=== PATIENT | male | born 1955 | race Caucasian/White ===

== ENCOUNTER 2017-04-29 00:17 | Emergency (ER) | payer MEDICAID, OTHER ==
[~2017-04-29] VITALS: Ht 177.8 cm; Wt 76.5 kg
[2017-04-29 00:23] VITALS: Ht 177.8 cm; Wt 76.5 kg
[2017-04-29] MEDS ORDERED: SOD CHLORIDE 0.9% 500 ML IV STA (00:38)
[2017-04-29 01:20] LABS: BASOPHILS % 0.3 % (0.0-2.0); EOSINOPHILS % 0.6 % (0.0-7.0); HEMATOCRIT 44.8 % (42.0-52.0); HEMOGLOBIN 15.6 g/dl (14.0-18.0); LYMPHOCYTES # 1.6 10^3/ul (0.8-2.9); LYMPHOCYTES % 22.4 % (15.0-51.0); MEAN CORPUSCULAR HEMOGLOBIN 30.5 pg (29.0-33.0); MEAN CORPUSCULAR HGB CONC 34.8 g/dl (32.0-37.0); MEAN CORPUSCULAR VOLUME 87.5 fl (82.0-101.0); MEAN PLATELET VOLUME 11.5 fl (7.4-10.4); MONOCYTE # 0.5 10^3/ul (0.3-0.9); MONOCYTES % 7.3 % (0.0-11.0); NEUTROPHIL # 4.8 10^3/ul (1.6-7.5); NEUTROPHILS % 68.4 % (39.0-77.0); PLATELET COUNT 207 10^3/UL (140-415); RED BLOOD COUNT 5.12 10^6/ul (4.70-6.10); RED CELL DISTRIBUTION WIDTH 11.7 % (11.5-14.5)
[2017-04-29 01:47] LABS: ALANINE AMINOTRANSFERASE 41 IU/L (13-69); ALBUMIN 4.3 g/dl (3.3-4.9); ALBUMIN/GLOBULIN RATIO 1.43; ALKALINE PHOSPHATASE 86 IU/L (42-121); ANION GAP 13 (8-16); ASPARTATE AMINO TRANSFERASE 26 IU/L (15-46); BILIRUBIN,INDIRECT 0.4 mg/dl (0-1.1); BILIRUBIN,TOTAL 0.4 mg/dl (0.2-1.3); BLOOD UREA NITROGEN 15 mg/dl (7-20); CALCIUM 8.8 mg/dl (8.4-10.2); CARBON DIOXIDE 27 mmol/L (21-31); CHLORIDE 107 mmol/L (97-110); CREATININE 0.85 mg/dl (0.61-1.24); GLUCOSE 170 mg/dl (70-220); POTASSIUM 3.9 mmol/L (3.5-5.1); SODIUM 143 mmol/L (135-144); TOTAL PROTEIN 7.3 g/dl (6.1-8.1)
[2017-04-29 01:59] LABS: B-TYPE NATRIURETIC PEPTIDE 33 PG/ML (0-125)
--- NOTE | 2017-04-29 02:04 | RADRPT ---
PROCEDURE: XR Chest. CLINICAL INDICATION: Chest pain. TECHNIQUE: Single frontal view of the chest. COMPARISON: None. FINDINGS: The cardiomediastinal silhouette is within normal limits. Mild atelectasis at the left lung base. Th e lungs are otherwise clear. No signs of pleural fluid or pneumothorax are seen. The osseous structu res and soft tissues are unremarkable. IMPRESSION: No evidence for active cardiopulmonary disease. RPTAT: [facility] Physician Chicho Date Time Electronically viewed and signed by Physician Chicho on 04/29/2017 02:03 RS/
[2017-04-29 02:05] LABS: TROPONIN-I < 0.012 ng/ml (0.00-0.12)
[2017-04-29] MEDS ORDERED: MULTI PO (03:20)
[2017-04-29 03:55] VITALS: TEMP 99.1
[2017-04-29 03:59] VITALS: BP 133/72; PULSE 70; RESP 18
--- NOTE | 2017-04-29 04:45 | ERD ---
ER Documentation Chief Complaint Date/Time 62-year-old male here with complaints of feeling weak today. General weakness. Denies any fevers chills nausea vomiting. Denies any other current complaints. Denies any focal neurological complaints. No chest pain no nausea no vomiting no chills. He started feeling tightness around 5:00 in the afternoon today but felt earlier in the day as well. Chief Complaint weakness, dry mouth (denies any medical hx) ROS All systems reviewed and are negative except as per history of present illness. Medications Home Meds Reported Medications Multivitamins* (Theragran*) 1 Tab Tab, 1 TAB PO DAILY, TAB 04/29/17 Allergies Allergies: Coded Allergies: No Known Allergy (Unverified , 04/29/17) PMhx/Soc Medical and Surgical Hx: pt denies Surgical Hx Hx Respiratory Disorders: No Hx Cardiac Disorders: Yes (PT UNCERTAIN OF EXACTLY WHAT) Hx Alcohol Use: Yes Hx Substance Use: Yes Hx Tobacco Use: Yes Smoking Status: Current every day smoker Physical Exam Vitals Vital Signs Date Time Temp Pulse Resp B/P Pulse Ox O2 Delivery O2 Flow Rate FiO2 04/29/17 03:59 70 18 133/72 98 Room Air 04/29/17 03:55 99.1 69 20 135/68 98 Room Air 04/29/17 02:23 16 150/73 94 Room Air 04/29/17 01:12 68 17 142/72 97 04/29/17 00:55 97.8 66 19 131/72 98 Room Air 04/29/17 00:23 97.8 85 20 151/86 98 Physical Exam Const: [] Head: Atraumatic Eyes: Normal Conjunctiva ENT: Normal External Ears, Nose and Mouth. Neck: Full range of motion..~ No meningismus. Resp: Clear to auscultation bilaterally Cardio: Regular rate and rhythm, no murmurs Abd: Soft, non tender, non distended. Normal bowel sounds Skin: No petechiae or rashes Back: No midline or flank tenderness Ext: No cyanosis, or edema Neur: Awake and alert Psych: Normal Mood and Affect Result Diagram: 04/29/17 0053 04/29/17 0053 Results 24 hrs Laboratory Tests Test 04/29/17 00:53 White Blood Count 7.010^3/ul Red Blood Count 5.1210^6/ul Hemoglobin 15.6g/dl Hematocrit 44.8% Mean Corpuscular Volume 87.5fl Mean Corpuscular Hemoglobin 30.5pg Mean Corpuscular Hemoglobin Concent 34.8g/dl Red Cell Distribution Width 11.7% Platelet Count 32999^3/UL Mean Platelet Volume 11.5fl Neutrophils % 68.4% Lymphocytes % 22.4% Monocytes % 7.3% Eosinophils % 0.6% Basophils % 0.3% Nucleated Red Blood Cells % 0.0/100WBC Neutrophils # 4.810^3/ul Lymphocytes # 1.610^3/ul Monocytes # 0.510^3/ul Eosinophils # 0.010^3/ul Basophils # 0.010^3/ul Nucleated Red Blood Cells # 0.010^3/ul Sodium Level 143mmol/L Potassium Level 3.9mmol/L Chloride Level 107mmol/L Carbon Dioxide Level 27mmol/L Anion Gap 13 Blood Urea Nitrogen 15mg/dl Creatinine 0.85mg/dl Glucose Level 170mg/dl Calcium Level 8.8mg/dl Total Bilirubin 0.4mg/dl Direct Bilirubin 0.00mg/dl Indirect Bilirubin 0.4mg/dl Aspartate Amino Transf (AST/SGOT) 26IU/L Alanine Aminotransferase (ALT/SGPT) 41IU/L Alkaline Phosphatase 86IU/L Troponin I < 0.012ng/ml B-Type Natriuretic Peptide 33PG/ML Total Protein 7.3g/dl Albumin 4.3g/dl Globulin 3.00g/dl Albumin/Globulin Ratio 1.43 Current Medications Medications (Trade) Dose Ordered Sig/Giuseppe Route PRN Reason Start Time Stop Time Status Last Admin Dose Admin Sodium Chloride (NS) 500 ml @ 500 mls/hr Q1H STAT IV 04/29/17 00:38 04/29/17 01:37 DC 04/29/17 00:56 Procedures/MDM EKG: Rate/Rhythm: [Normal Sinus Rhythm] QRS, ST, T-waves: [No changes consistent w/ acute ischemia] Impression: [No evidence of ischemia or arrhythmia] Chest X-ray 1V Interpreted by me: Soft Tissue: No acute abnormalities Bones: No acute abnormalities Mediastinum/Cardiac Silhouette/Lungs: [No acute abnormalities] Clinical decision-m[age]-year-old male comes in with acute weakness likely secondary to dehydration. After hydration, patient felt much better. At this point clinically stable for outpatient management. Patient will be discharged home. Departure Diagnosis: Primary Impression: Acute weakness Condition: Stable Patient Instructions: Dehydration (6Y-Adult) CECE PEDROZA Apr 29, 2017 04:45
== END 2017-04-29 04:56 | disposition home or self-care (01) ==
LOC: E/R 00:17
DX: R53.1 Weakness (principal); R40.2252 Coma scale, best verbal response, oriented, at arrival to emergency department; F17.210 Nicotine dependence, cigarettes, uncomplicated; R40.2142 Coma scale, eyes open, spontaneous, at arrival to emergency department; R40.2362 Coma scale, best motor response, obeys commands, at arrival to emergency department
CPT/HCPCS: 36415; 71010; 80053; 83880; 84484; 85025; 93005; J7040; Z7502